=== PATIENT | male | born 1990 | race Caucasian/White ===

== ENCOUNTER 2022-09-09 09:46 | Outpatient (CLI) | payer OTHER ==
--- NOTE | 2022-09-09 11:15 | MRI Report ---
PROCEDURE: LUMBAR SPINE WO INDICATIONS: LOW BACK PAIN TECHNIQUE: Noncontrast sagittal T1 spin echo and T2 fast echo, sagittal STIR, axial T1 and T2 fast spin echo thr ough the lumbar spine. In cases with scoliosis, additional coronal T2 fast spin echo may be performe d. COMPARISON: None. FINDINGS: Image quality: Excellent. Alignment and Curvature: There is normal bony alignment. Bone Marrow: Marrow is of normal overall signal. No acute vertebral body compression fractures. Spinal Cord: Conus medullaris terminates at the L1 level. Visualized cord demonstrates normal signa l and size. Paraspinous Soft Tissues: No paravertebral masses. Discs: Moderate desiccation is present at L5-S1. T12-L1: No disc bulge, spinal stenosis or foraminal narrowing. L1-L2: No disc bulge, spinal stenosis or foraminal narrowing. L2-L3: Minimal disc bulge without spinal stenosis or foraminal narrowing. Minimal epidural lipomat osis. L3-L4: Minimal disc bulge with mild canal narrowing. No foraminal narrowing. L4-L5: Mild disc bulge with mild spinal stenosis. No foraminal narrowing. L5-S1: Mild disc bulge with superimposed left posterior paracentral extrusion measuring 10 mm. It i s causing near complete compromise of the left lateral recess. No foraminal narrowing. IMPRESSION: Disc bulge with superimposed left posterior paracentral extrusion causing near complete compromise of the left lateral recess. Reviewed by: Mi Taylor MD on 09/09/2022 11:13 AM PDT Approved by: Mi Taylor MD on 09/09/2022 11:13 AM PDT Station ID: [id number]
== END 2022-09-09 09:47 | disposition home or self-care (01) ==
LOC: DI 09:46
PROVIDERS: ATTEND General Practice
DX: M51.36 Other intervertebral disc degeneration, lumbar region (principal); M51.26 Other intervertebral disc displacement, lumbar region